=== PATIENT | female | born 1975 | race Hispanic/Latino ===

== ENCOUNTER 2020-04-24 18:29 | Emergency (ER) | payer SELFPAY ==
[2020-04-24 18:55] VITALS: TEMP 100.4
[2020-04-24] MEDS ORDERED: SODIUM CHLORIDE 0.9% 1000ML 1,000 ML IVS ONE (19:04)
[2020-04-24] MEDS ORDERED: KETOROLAC TROMETHAMINE INJ 30 MG/ML VIAL IM ONE (19:04)
[2020-04-24] MEDS ORDERED: PROMETHAZINE HCL INJ 25 MG in SODIUM CHLORIDE 0.9% 50ML 50 ML IVPB ONE (19:04)
[2020-04-24] MEDS ORDERED: SUCRALFATE 1 GM/10 ML 1 GM UD PO ONE (19:05)
--- NOTE | 2020-04-24 19:45 | RAD ---
EXAM DESCRIPTION: Abdomen Series 04/24/2020 7:41 PM CDT CLINICAL HISTORY: 44 years, Female, nvd COMPARISON: None. FINDINGS: Single view of the chest as well as supine and erect images of the abdomen were obtained. No prior films are available for comparison. The cardiomediastinal silhouette demonstrate to be unremarkable. The heart is not enlarged. The thoracic aorta is unremarkable. The lung volume is decreased. Aeration of the right hemidiaphragm with minimal compressive atelectatic changes. Costophrenic angles are sharp. No areas of consolidation or masses are seen. There is no evidence for pneumothorax. The gas pattern is nondiagnostic. No signs of ileus or obstruction. No free air under the diaphragm is noted. Surgical clips within the gallbladder fossa corresponding to previous cholecystectomy. No abnormal calcifications are seen in either renal fossa. The psoas shadows demonstrate to be symmetric. The bone windows demonstrate to be unremarkable. IMPRESSION: NO ACUTE CARDIOPULMONARY DISEASE SEEN. STATUS POST CHOLECYSTECTOMY. NONDIAGNOSTIC GAS PATTERN. NO SIGNS OF OBSTRUCTION OR ILEUS. Electronically signed by: Sravan Badillo MD 04/24/2020 7:43 PM CDT
[2020-04-24] MEDS ORDERED: ACETAMINOPHEN 325 MG TAB PO ONE (20:14)
[2020-04-24] MEDS ORDERED: AZITHROMYCIN 250 MG TAB PO ONE (21:30)
[2020-04-24] MEDS ORDERED: DOXYCYCLINE HYCLATE CAP 100 MG CAP PO ONE (21:31)
--- NOTE | 2020-04-24 21:50 | ED.PDOC ---
History of Present Illness - General Chief Complaint: General Stated Complaint: fever,chills,cough,vomiting,diarrhea,TANG Time Seen by Provider: 04/24/20 18:41 Source: patient Exam Limitations: no limitations, other - [employer] Work[employer] used. - History of Present Illness Initial Comments: The patient is a 44-year-old female presented emergency room secondary to to 5 to 6 days of symptoms of fever, mild headache, mild sore throat and runny nose, multiple episodes of nausea vomiting and diarrhea. No blood or bile in the vomitus and no blood in the stool. No real severe focal abdominal pain most of her abdominal discomfort is in the epigastric area. The patient was diagnosed 5 days ago with strep throat and was given amoxicillin which report. This has not helped the sore throat. No rash. No palpitations. The patient reports that she was feeling fine prior to that. The patient reports that symptoms started 1 day after she been arrived in the from [place]. No real shortness of breath. No syncope or near syncope. No focal neurological changes. No nuchal rigidity or meningeal signs. She reports 1-2 episodes of diarrhea per day for the last 4 or 5 days. The patient reports that she had breast cancer 10 years ago and has had a mastectomy. She reports that she is clear of the breast cancer. Timing/Duration: other - About 6 days Severity: moderate Improving Factors: nothing Worsening Factors: eating Associated Symptoms: fever/chills, headaches, loss of appetite, malaise, nausea/vomiting Allergies/Adverse Reactions: Allergies Dipyrone Allergy (Verified 04/24/20 18:54) Quinolones Allergy (Verified 04/24/20 18:54) Home Medications: Ambulatory Orders Azithromycin 500 mg PO DAILY #5 tab 04/24/20 Doxycycline Hyclate 100 mg PO BID #14 cap 04/24/20 Sucralfate Tab [Carafate Tab] 1 gm PO QID #60 tab 04/24/20 predniSONE [Prednisone] 20 mg PO BID #30 tab 04/24/20 Review of Systems - Review of Systems Constitutional: States: fever, malaise EENTM: States: throat pain Respiratory: States: no symptoms reported Cardiology: States: no symptoms reported Gastrointestinal/Abdominal: States: diarrhea, nausea, vomiting Genitourinary: States: no symptoms reported Musculoskeletal: States: no symptoms reported Skin: States: no symptoms reported Neurological: States: headache Endocrine: States: no symptoms reported All other Systems: No Change from Baseline Past Medical History (General) - Patient Medical History Hx Stroke: No Hx Congestive Heart Failure: No Hx Diabetes: No - Vaccination History Hx Influenza Vaccination: Yes - 04/18/20 Hx Pneumococcal Vaccination: No - Social History Hx Tobacco Use: No Family Medical History - Family History Mother Family History: Unknown Living Status: Unknown Physical Exam - Physical Exam General Appearance: Alert, Comfortable, No apparent distress Eye Exam: bilateral normal Ears, Nose, Throat: hearing grossly normal, normal pharynx Neck: full range of motion, supple Respiratory: lungs clear, normal breath sounds, no respiratory distress, no accessory muscle use Cardiovascular/Chest: normal peripheral pulses, regular rate, rhythm, no edema Peripheral Pulses: radial,right: 2+, radial,left: 2+, dorsalis pedis,right: 2+, dorsalis pedis,left: 2+ Gastrointestinal/Abdominal: soft, other - Mild epigastric discomfort to palpation. No rebound or peritoneal signs. No obvious hepatosplenomegaly. 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, alert, normal mood/affect, oriented x 3 Skin Exam: normal color Comments: Vital Signs - 24 hr 04/24/20 04/24/20 04/24/20 18:45 19:51 20:00 Temperature 100.4 F H Pulse Rate [ 99 H 84 91 H Right Brachial] Respiratory 16 18 16 Rate Blood Pressure 100/71 127/70 138/72 [Right Arm] O2 Sat by Pulse 97 92 L 92 L Oximetry 04/24/20 21:00 Temperature Pulse Rate [ 84 Right Brachial] Respiratory 18 Rate Blood Pressure 105/58 [Right Arm] O2 Sat by Pulse 95 Oximetry Progress - Progress Progress: 04/24/20 21:52 Patient is a 44-year-old female presents emergency room secondary to slightly less than a week's worth of multiple symptoms. Patient apparently had strep throat 5 or 6 days ago and is taking the amoxicillin for treatment of that without significant improvement. Patient can take Tylenol for fever and headache. She needs to increase her fluid intake which may also help the headache. She did receive a liter of IV fluids here. The patient does have a small urinary tract infection and is going to be placed on doxycycline for that, based on allergy profile. She will be on 7 days of it. Additionally the patient may possibly have contracted food poisoning, she certainly has symptoms of a gastroenteritis. She will be placed on a 5-day course of azithromycin to help cover Salmonella, Shigella and Campylobacter as possibilities. She does need to maintain a bland diet. She does have Zofran at home for as needed use. I am going to add famotidine and Carafate to her medication regimen as the antibiotics may be irritating her stomach further. I do want her to follow back up with one of the family practice doctors in [facility] in about a week for a repeat CBC. White blood cell count was mildly low at 2700 and platelets were mildly low at around 100,000. It is uncertain what her baseline is. Other laboratory work was unimpressive. ER warnings are given for any significant worsening. Obviously if the patient worsens then additional work-up including more advanced imaging may be warranted. [email or web address] [id number] - Results/Orders Results/Orders: Acute abdominal series appears benign. Respiratory panel is negative. Laboratory Tests 04/24/20 04/24/20 04/24/20 19:30 19:30 19:30 WBC 2.7 L RBC 4.58 Hgb 13.9 Hct 39.4 MCV 86.0 MCH 30.4 MCHC 35.4 RDW 12.6 Plt Count 101 L MPV 8.8 Absolute Neuts (auto) Not Reportable Absolute Lymphs (auto) Not Reportable Absolute Monos (auto) Not Reportable Absolute Eos (auto) Not Reportable Neutrophils % Not Reportable Neutrophils % (Manual) 50.0 Lymphocytes % Not Reportable Lymphocytes % (Manual) 35.0 Monocytes % Not Reportable Monocytes % (Manual) 6.0 Eosinophils % Not Reportable Basophils % Not Reportable Band Neutrophils 8.0 H Eosinophils 1.0 Platelet Estimate Decreased Normal RBC Morphology Normal rbc morph Sodium 132 L Potassium 3.4 L Chloride 97 L Carbon Dioxide 23 Anion Gap 15.4 BUN 10 Creatinine 0.66 BUN/Creatinine Ratio 15.2 Random Glucose 108 H Serum Osmolality 264.1 L Lactic Acid 1.1 Calcium 8.3 L Magnesium 1.7 L Total Bilirubin 0.5 AST 85 H ALT 52 Alkaline Phosphatase 85 Creatine Kinase 106 CK-MB (CK-2) 0.4 CK-MB (CK-2) % Not Reportable Troponin I < 0.02 Serum Total Protein 7.8 Albumin 4.1 Globulin 3.7 H Albumin/Globulin Ratio 1.1 Amylase 48 Lipase 37 TSH 0.98 Urine Color Urine Appearance Urine pH Ur Specific Runnells Urine Protein Urine Glucose (UA) Urine Ketones Urine Blood Urine Nitrite Urine Bilirubin Urine Urobilinogen Ur Leukocyte Esterase Urine RBC Urine WBC Ur Epithelial Cells Urine Bacteria Urine Mucus 04/24/20 19:30 WBC RBC Hgb Hct MCV MCH MCHC RDW Plt Count MPV Absolute Neuts (auto) Absolute Lymphs (auto) Absolute Monos (auto) Absolute Eos (auto) Neutrophils % Neutrophils % (Manual) Lymphocytes % Lymphocytes % (Manual) Monocytes % Monocytes % (Manual) Eosinophils % Basophils % Band Neutrophils Eosinophils Platelet Estimate Normal RBC Morphology Sodium Potassium Chloride Carbon Dioxide Anion Gap BUN Creatinine BUN/Creatinine Ratio Random Glucose Serum Osmolality Lactic Acid Calcium Magnesium Total Bilirubin AST ALT Alkaline Phosphatase Creatine Kinase CK-MB (CK-2) CK-MB (CK-2) % Troponin I Serum Total Protein Albumin Globulin Albumin/Globulin Ratio Amylase Lipase TSH Urine Color Dk yellow H Urine Appearance Cloudy Urine pH 7.0 Ur Specific Runnells 1.020 Urine Protein 100 H Urine Glucose (UA) Negative Urine Ketones Negative Urine Blood Trace-intact H Urine Nitrite Positive H Urine Bilirubin Negative Urine Urobilinogen 0.2 Ur Leukocyte Esterase Trace H Urine RBC 0-1 Urine WBC 3-5 H Ur Epithelial Cells 1-3 Urine Bacteria 4+ H Urine Mucus Trace Departure - Departure Clinical Impression: Gastroenteritis, Mild dehydration, Cystitis Disposition: Discharge to Home or Self Care Condition: Fair Departure Forms: ED Discharge - Pt. Copy, Patient Portal Self Enrollment Instructions: Urinary Tract Infection, Adult (DC) Diet: bland diet Activity: increase activity as tolerated Prescriptions: Azithromycin 500 mg PO DAILY #5 tab Sucralfate Tab [Carafate Tab] 1 gm PO QID #60 tab Doxycycline Hyclate 100 mg PO BID #14 cap predniSONE [Prednisone] 20 mg PO BID #30 tab Home Medications: Ambulatory Orders Azithromycin 500 mg PO DAILY #5 tab 04/24/20 Doxycycline Hyclate 100 mg PO BID #14 cap 04/24/20 Sucralfate Tab [Carafate Tab] 1 gm PO QID #60 tab 04/24/20 predniSONE [Prednisone] 20 mg PO BID #30 tab 04/24/20 Additional Instructions: Patient is a 44-year-old female presents emergency room secondary to slightly less than a week's worth of multiple symptoms. Patient apparently had strep throat 5 or 6 days ago and is taking the amoxicillin for treatment of that without significant improvement. Patient can take Tylenol for fever and headache. She needs to increase her fluid intake which may also help the headache. She did receive a liter of IV fluids here. The patient does have a small urinary tract infection and is going to be placed on doxycycline for that, based on allergy profile. She will be on 7 days of it. Additionally the patient may possibly have contracted food poisoning, she certainly has symptoms of a gastroenteritis. She will be placed on a 5-day course of azithromycin to help cover Salmonella, Shigella and Campylobacter as possibilities. She does need to maintain a bland diet. She does have Zofran at home for as needed use. I am going to add famotidine and Carafate to her medication regimen as the antibiotics may be irritating her stomach further. I do want her to follow back up with one of the family practice doctors in [facility] in about a week for a repeat CBC. White blood cell count was mildly low at 2700 and platelets were mildly low at around 100,000. It is uncertain what her baseline is. Other laboratory work was unimpressive. ER warnings are given for any significant worsening. Obviously if the patient worsens then additional work-up including more advanced imaging may be warranted.
[2020-04-24 22:15] VITALS: BP 108/49; O2SAT 98
== END 2020-04-24 22:12 | disposition home or self-care (01) ==
LOC: ER 18:29
DX: K52.9 Noninfective gastroenteritis and colitis, unspecified (principal); E86.0 Dehydration; N30.00 Acute cystitis without hematuria; Z20.828 Contact with and (suspected) exposure to other viral communicable diseases; N39.0 Urinary tract infection, site not specified
CPT/HCPCS: 36415; 74019; 80053; 81001; 82150; 82550; 82553; 83605; 83690; 83735; 84443; 84484; 85025; 87040; 87086; 87486; 87581; 87633; 87635; A4216; J1885; J2550; J7030; Q0144